=== PATIENT | female | born 1990 | race American Indian/Alaskan Native ===

== ENCOUNTER 2020-09-25 16:54 | Emergency (ER) | payer OTHER ==
[2020-09-25 17:06] VITALS: BP 141/96
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
[2020-09-25] MEDS ORDERED: IBUPROFEN 800 MG TAB PO STA (18:49)
[2020-09-25] MEDS ORDERED: oxyCODONE /ACETAMINOPHEN 5-325MG TAB PO ONE (18:50)
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
== END 2020-09-25 19:34 | disposition home or self-care (01) ==
LOC: ED 16:54
DX: S52.501A Unspecified fracture of the lower end of right radius, initial encounter for closed fracture (principal); S52.601A Unspecified fracture of lower end of right ulna, initial encounter for closed fracture; F17.200 Nicotine dependence, unspecified, uncomplicated; Z79.899 Other long term (current) drug therapy; Z98.890 Other specified postprocedural states; V49.49XA Driver injured in collision with other motor vehicles in traffic accident, initial encounter; Y92.410 Unspecified street and highway as the place of occurrence of the external cause; Y93.89 Activity, other specified; Y99.8 Other external cause status